=== PATIENT | female | born 1940 | race Hispanic/Latino ===

== ENCOUNTER → 2021-09-18 | Outpatient (RCR) | payer OTHER | LOC: PT 08-28 10:49 | PROVIDERS: ATTEND Family Medicine | DX: M54.16 Radiculopathy, lumbar region (principal) ==

== ENCOUNTER 2021-09-24 13:50 | Outpatient (RCR) | payer OTHER | END 2021-10-19 | LOC: PT 13:50 | PROVIDERS: ATTEND Family Medicine | DX: M54.50 Low back pain, unspecified (principal); M54.16 Radiculopathy, lumbar region | CPT/HCPCS: 97139 ==